=== PATIENT | male | born 1990 | race Two or more races ===

== ENCOUNTER 2022-10-26 08:26 | Emergency (ER) | payer OTHER ==
[~2022-10-26] VITALS: Ht 170.2 cm; Wt 74.8 kg
[2022-10-26 08:30] VITALS: BP 125/65; TEMP 98.8
[2022-10-26] MEDS ORDERED: IBUP-1454 PO (09:40)
[2022-10-26] MEDS ORDERED: METH-1181 PO (09:40)
[2022-10-26 10:11] VITALS: PULSE 92; RESP 18; O2SAT 97
== END 2022-10-26 10:14 | disposition home or self-care (01) ==
LOC: ER 08:26
DX: M54.59 Other low back pain (principal); M54.2 Cervicalgia; V43.52XA Car driver injured in collision with other type car in traffic accident, initial encounter; Y93.89 Activity, other specified; Y92.410 Unspecified street and highway as the place of occurrence of the external cause; Y99.8 Other external cause status